=== PATIENT | male | born 1945 | race Caucasian/White ===

== ENCOUNTER 2016-08-09 15:30 | Inpatient (IN) | payer MEDICARE ==
[~2016-08-09 15:30] MED LIST: AUGMENTIN 875-1 EAC2 PO; LEVAQUIN500 M1 PO; LIPITOR40 M1 PO; TOPROL XL50 M1 PO; VASOTEC5 M1 PO; ZESTRIL2.5 M3 PO
[2016-08-09] MEDS ORDERED: ALDACTONE25 M1 PO (16:25)
[2016-08-09] MEDS ORDERED: LASIX20 M1 PO (16:26)
[2016-08-09 20:55] LABS: URINE TOTAL PROTEIN-RANDOM 37.8 mg/dl (<11.8)
[2016-08-09 21:05] LABS: BASO % 0.4 % (0-2); EOS % 1.1 % (0-7); EOSINOPHIL ABSOLUTE COUNT 0.1 tho/cmm (0.0-0.7); HCT-HEMATOCRIT 31.9 % (36.0-53.5); IMMATURE GRANULOCYTES ABSOLUTE 0.01 tho/cmm (0-0.03); IMMATURE GRANULOCYTES PERCENT 0.1 % (0-0.3); LYMPH % 18.7 % (20-45); LYMPH ABSOLUTE COUNT 1.4 tho/cmm (0.8-4.5); MCH (MEAN CORPUSCULAR HGB) 30.1 pg (28.0-32.0); MCHC MEAN CORPUSCULAR HGB CONC 34.5 % (32.0-36.0); MCV (MEAN CELL VOLUME) 87.4 fl (82.0-96.0); MEAN PLATELET VOLUME 10.1 cmc (9.4-12.4); MONO % 5.2 % (0-12); MONOCYTE ABSOLUTE COUNT 0.4 tho/cmm (0.0-1.2); NEUTROPHIL ABSOLUTE COUNT 5.6 tho/cmm (1.6-8.0); NEUTROPHIL-AUTOMATED 5.6 tho/cmm (1.6-8.0); NEUTROPHILS % 74.5 % (40-80); PLATELET COUNT 151 tho/cmm (150-450); RED BLOOD COUNT 3.65 mil/cmm (4.40-5.70); RED CELL DISTRIBUTION WIDTH 13.3 % (12.4-16.4); WHITE BLOOD COUNT 7.6 tho/cmm (4.0-10.0)
[2016-08-09 21:16] LABS: ALB/GLOB RATIO 0.6 (0.8-2.0); ALBUMIN 2.7 g/dl (3.5-5.0); ANION GAP 12 mmol/L (0-20); BILIRUBIN,TOTAL 0.7 mg/dl (0.0-1.5); BLOOD UREA NITROGEN 70 mg/dl (6-24); CARBON DIOXIDE-VENOUS 26 mmol/L (22-32); CHLORIDE 105 mmol/l (96-110); CREATININE 6.94 mg/dl (0.60-1.30); POTASSIUM 4.4 mmol/L (3.7-5.1); SODIUM 139 mmol/L (135-145); eGFR VALUE FOR BLACK 8 mL/Min
[2016-08-09 21:24] LABS: ALKALINE PHOSPHATASE 84 U/L (33-138); ALT/SGPT 10 U/L (12-78); AST/SGOT 14 U/L (10-40); CALCIUM 7.9 mg/dl (8.5-10.5); GLUCOSE 128 mg/dL (70-110)
[2016-08-10 03:55] LABS: URINE PRT/CR RATIO 0.21 Ratio (0.0-0.20)
[2016-08-10 04:56] LABS: ANION GAP 11 mmol/L (0-20); BLOOD UREA NITROGEN 72 mg/dl (6-24); CARBON DIOXIDE-VENOUS 26 mmol/L (22-32); CHLORIDE 106 mmol/l (96-110); CREATININE 6.95 mg/dl (0.60-1.30); POTASSIUM 4.4 mmol/L (3.7-5.1); SODIUM 139 mmol/L (135-145); eGFR VALUE FOR BLACK 8 mL/Min
[2016-08-10 04:59] LABS: CALCIUM 7.8 mg/dl (8.5-10.5); GLUCOSE 107 mg/dL (70-110)
[2016-08-10 07:26] LABS: URINE APPEARANCE CLOUDY; URINE BILIRUBIN NEGATIVE (NEG); URINE BLOOD LARGE (NEG); URINE COLOR YELLOW; URINE GLUCOSE (UA) NEGATIVE (NEG); URINE KETONE NEGATIVE (NEG); URINE LEUKOCYTE ESTERASE POSITIVE (NEG); URINE NITRITE NEGATIVE (NEG); URINE PROTEIN SMALL (NEG); URINE SPECIFIC GRAVITY 1.015 (1.003-1.030)
[2016-08-10 07:32] LABS: URINE BACTERIA 2+; URINE EPITHELIAL CELLS 0 /[HPF] (0-10); URINE PRT/CR RATIO 0.14 Ratio (0.0-0.20); URINE TOTAL PROTEIN-RANDOM 28.2 mg/dl (<11.8); URINE WBC 60-80 /[HPF] (0-5)
[2016-08-10 12:43] LABS: PHOSPHOROUS 4.8 mg/dl (2.5-4.9)
--- NOTE | 2016-08-10 19:02 | NUR ---
VIRTUAL CARE NOTE: PT. IN BED, EXPLAINS HE GOT WEAK AND LIGHTHEADED PRIOR IN THE DAY WITH A WALK, BUT DIDN'T THE SECOND WALK TODAY. EDUCATION REINFORCED IF SITS UP AND FEELS THE SAME WAY PRIOR TO CALL FOR ASSISTANCE AND NOT GET UP WITHOUT HELP. STATES HE'S BEEN TOLD THAT A LOT TODAY. PRAISE GIVEN FOR FOLLOWING INSTRUCTIONS. DENIES FURTHER NEEDS OR QUESTIONS AT THIS TIME. INSTRUCTED TO CALL FOR FUTURE NEEDS. STATES VERBAL AGREEMENT.
[2016-08-11 06:15] LABS: ALBUMIN 2.7 g/dl (3.5-5.0); ANION GAP 14 mmol/L (0-20); BLOOD UREA NITROGEN 71 mg/dl (6-24); CARBON DIOXIDE-VENOUS 24 mmol/L (22-32); CHLORIDE 104 mmol/l (96-110); CREATININE 6.83 mg/dl (0.60-1.30); POTASSIUM 4.9 mmol/L (3.7-5.1); SODIUM 137 mmol/L (135-145); eGFR VALUE FOR BLACK 9 mL/Min
[2016-08-11 06:21] LABS: CALCIUM 8.2 mg/dl (8.5-10.5); GLUCOSE 119 mg/dL (70-110); PHOSPHOROUS 5.9 mg/dl (2.5-4.9)
[2016-08-11 06:58] LABS: INR 1.1 INR (0.9-1.1)
[2016-08-12 07:04] LABS: IRON 18 ug/dl (49-181); IRON BINDING CAPACITY 167 ug/dl (250-450)
[2016-08-12 07:11] LABS: ANION GAP 14 mmol/L (0-20); BLOOD UREA NITROGEN 56 mg/dl (6-24); CARBON DIOXIDE-VENOUS 23 mmol/L (22-32); CHLORIDE 104 mmol/l (96-110); CREATININE 5.72 mg/dl (0.60-1.30); MAGNESIUM 2.2 mg/dl (1.3-2.6); POTASSIUM 4.9 mmol/L (3.7-5.1); SODIUM 136 mmol/L (135-145); eGFR VALUE FOR BLACK 11 mL/Min
[2016-08-12 07:16] LABS: CALCIUM 8.1 mg/dl (8.5-10.5); GLUCOSE 84 mg/dL (70-110)
[2016-08-12 07:37] LABS: FERRITIN 89 ng/ml (22-388)
[2016-08-13 05:37] LABS: ANION GAP 12 mmol/L (0-20); CARBON DIOXIDE-VENOUS 28 mmol/L (22-32); CHLORIDE 102 mmol/l (96-110); POTASSIUM 4.2 mmol/L (3.7-5.1); SODIUM 138 mmol/L (135-145)
[2016-08-13 05:49] LABS: BLOOD UREA NITROGEN 25 mg/dl (6-24); CALCIUM 7.8 mg/dl (8.5-10.5); CREATININE 2.83 mg/dl (0.60-1.30); eGFR VALUE FOR BLACK 25 mL/Min
[2016-08-13 05:50] LABS: GLUCOSE 95 mg/dL (70-110)
[2016-08-14 04:56] LABS: BASO % 0.2 % (0-2); EOS % 0.3 % (0-7); HCT-HEMATOCRIT 32.6 % (36.0-53.5); HGB-HEMOGLOBIN 10.7 gm/dl (13.5-17.0); IMMATURE GRANULOCYTES ABSOLUTE 0.02 tho/cmm (0-0.03); IMMATURE GRANULOCYTES PERCENT 0.2 % (0-0.3); LYMPH % 11.6 % (20-45); LYMPH ABSOLUTE COUNT 1.2 tho/cmm (0.8-4.5); MCH (MEAN CORPUSCULAR HGB) 29.4 pg (28.0-32.0); MCHC MEAN CORPUSCULAR HGB CONC 32.8 % (32.0-36.0); MCV (MEAN CELL VOLUME) 89.6 fl (82.0-96.0); MEAN PLATELET VOLUME 10.6 cmc (9.4-12.4); MONO % 5.3 % (0-12); MONOCYTE ABSOLUTE COUNT 0.5 tho/cmm (0.0-1.2); NEUTROPHIL ABSOLUTE COUNT 8.5 tho/cmm (1.6-8.0); NEUTROPHIL-AUTOMATED 8.5 tho/cmm (1.6-8.0); NEUTROPHILS % 82.4 % (40-80); PLATELET COUNT 151 tho/cmm (150-450); RED BLOOD COUNT 3.64 mil/cmm (4.40-5.70); RED CELL DISTRIBUTION WIDTH 13.7 % (12.4-16.4); WHITE BLOOD COUNT 10.3 tho/cmm (4.0-10.0)
[2016-08-14 05:12] LABS: ANION GAP 12 mmol/L (0-20); BLOOD UREA NITROGEN 21 mg/dl (6-24); CARBON DIOXIDE-VENOUS 26 mmol/L (22-32); CHLORIDE 106 mmol/l (96-110); POTASSIUM 3.9 mmol/L (3.7-5.1); SODIUM 140 mmol/L (135-145)
[2016-08-14 05:13] LABS: CALCIUM 7.8 mg/dl (8.5-10.5); GLUCOSE 96 mg/dL (70-110)
[2016-08-14 05:14] LABS: PHOSPHOROUS 2.7 mg/dl (2.5-4.9); eGFR VALUE FOR BLACK 40 mL/Min
[2016-08-15 06:25] LABS: BASO % 0.2 % (0-2); EOSINOPHIL ABSOLUTE COUNT 0.1 tho/cmm (0.0-0.7); HCT-HEMATOCRIT 32.4 % (36.0-53.5); HGB-HEMOGLOBIN 10.7 gm/dl (13.5-17.0); IMMATURE GRANULOCYTES ABSOLUTE 0.02 tho/cmm (0-0.03); IMMATURE GRANULOCYTES PERCENT 0.2 % (0-0.3); LYMPH % 14.7 % (20-45); LYMPH ABSOLUTE COUNT 1.3 tho/cmm (0.8-4.5); MCH (MEAN CORPUSCULAR HGB) 29.6 pg (28.0-32.0); MCV (MEAN CELL VOLUME) 89.5 fl (82.0-96.0); MEAN PLATELET VOLUME 10.4 cmc (9.4-12.4); MONOCYTE ABSOLUTE COUNT 0.5 tho/cmm (0.0-1.2); NEUTROPHILS % 77.9 % (40-80); PLATELET COUNT 155 tho/cmm (150-450); RED BLOOD COUNT 3.62 mil/cmm (4.40-5.70); RED CELL DISTRIBUTION WIDTH 13.6 % (12.4-16.4)
[2016-08-15 06:34] LABS: ANION GAP 8 mmol/L (0-20); BLOOD UREA NITROGEN 22 mg/dl (6-24); CARBON DIOXIDE-VENOUS 29 mmol/L (22-32); CHLORIDE 108 mmol/l (96-110); CREATININE 1.71 mg/dl (0.60-1.30); POTASSIUM 3.7 mmol/L (3.7-5.1); SODIUM 141 mmol/L (135-145); eGFR VALUE FOR BLACK 46 mL/Min
[2016-08-15 06:37] LABS: PHOSPHOROUS 2.4 mg/dl (2.5-4.9)
[2016-08-15 06:38] LABS: GLUCOSE 139 mg/dL (70-110)
[2016-08-16 06:54] LABS: ALBUMIN 2.1 g/dl (3.5-5.0); BLOOD UREA NITROGEN 20 mg/dl (6-24); CARBON DIOXIDE-VENOUS 28 mmol/L (22-32); CREATININE 1.52 mg/dl (0.60-1.30); eGFR VALUE FOR BLACK 53 mL/Min
[2016-08-16 06:56] LABS: CALCIUM 7.8 mg/dl (8.5-10.5); GLUCOSE 105 mg/dL (70-110); PHOSPHOROUS 2.3 mg/dl (2.5-4.9)
[2016-08-16 07:10] LABS: ANION GAP 10 mmol/L (0-20); CHLORIDE 105 mmol/l (96-110); POTASSIUM 3.3 mmol/L (3.7-5.1); SODIUM 140 mmol/L (135-145)
[2016-08-16 13:03] LABS: INR 1.2 INR (0.9-1.1); PROTHROMBIN TIME 13.8 SECONDS (9.0-13.6)
== END 2016-08-16 15:57 | DRG 669 ==
LOC: 5WD 15:30 → ORW 08-13 15:17 → PACU 08-13 17:14 → 5WD 08-13 17:50
PROVIDERS: Family Medicine; Internal Medicine Nephrology; Radiology Diagnostic Radiology; ADMIT Internal Medicine
PROC: 5A1D60Z (ICD-10-PCS; 2016-08-11)
PROC: 0TBB8ZZ Excision of Bladder, Via Natural or Artificial Opening Endoscopic (ICD-10-PCS; principal; 2016-08-13)
PROC: 0T788DZ Dilation of Bilateral Ureters with Intraluminal Device, Via Natural or Artificial Opening Endoscopic (ICD-10-PCS; 2016-08-13)
PROC: BT14YZZ Fluoroscopy of Kidneys, Ureters and Bladder using Other Contrast (ICD-10-PCS; 2016-08-13)
PROC: 0JH63XZ Insertion of Tunneled Vascular Access Device into Chest Subcutaneous Tissue and Fascia, Percutaneous Approach (ICD-10-PCS; 2016-08-13)
PROC: 02H633Z Insertion of Infusion Device into Right Atrium, Percutaneous Approach (ICD-10-PCS; 2016-08-13)
PROC: 0JPTXXZ Removal of Tunneled Vascular Access Device from Trunk Subcutaneous Tissue and Fascia, External Approach (ICD-10-PCS; 2016-08-16)
DX: C67.9 Malignant neoplasm of bladder, unspecified (principal); N17.9 Acute kidney failure, unspecified; N13.1 Hydronephrosis with ureteral stricture, not elsewhere classified; I11.0 Hypertensive heart disease with heart failure; I50.9 Heart failure, unspecified; E78.5 Hyperlipidemia, unspecified; Z87.891 Personal history of nicotine dependence; K59.00 Constipation, unspecified; D50.9 Iron deficiency anemia, unspecified
CPT/HCPCS: C1750; C1769; C2617; J0690; J1644; J2250; J2270; J3010; J7030; Q9967